=== PATIENT | male | born 1960 | race African-American/Black ===

== ENCOUNTER 2017-06-26 06:06 | Emergency (ER) | payer MEDICAID ==
[~2017-06-26] VITALS: Ht 177.8 cm; Wt 99.8 kg
[~2017-06-26 06:06] MED LIST: ASPIRIN81 MG ORAL; IBUPROFEN600 MG ORAL; LISINOPRIL20 MG ORAL; LISINOPRIL40 MG ORAL; METOPROLOL TAR100 MG ORAL; NORMODYNE200 MG ORAL; TRIAMTERENE-HC1 EAC7 ORAL
--- NOTE | 2017-06-26 06:48 | Emergency Room Report ---
History of Present Illness General Chief Complaint: Lower Extremity Injury Source: Patient Present Illness HPI Patient reports that 2 days ago he was jogging when he felt some pain to the left foot Initially at the base of the foot and localized to the base of the large toe He had rested and today after attempting to run He again felt discomfort to the base of the large toe Denies any calf pain denies any fall or trauma denies any knee pain denies any obvious swelling Pain is 5/10 localized to the outside part of the large toe and base of the toe Allergies: Coded Allergies: No Known Allergies (Unverified , 09/30/15) Patient History Past Medical History: see triage record Pertinent Family History: none Reviewed Nursing Documentation: PMH: Agreed, PSxH: Agreed Nursing Documentation-PMH Hx Hypertension: Yes Review of Systems All Other Systems: negative except mentioned in HPI Physical Exam Vital Signs Date Time Temp Pulse Resp B/P (MAP) Pulse Ox O2 Delivery O2 Flow Rate FiO2 06/26/17 06:08 98.1 82 18 124/85 98 Room Air Sp02 EP Interpretation: reviewed, normal General Appearance: well appearing, no apparent distress Head: normocephalic, atraumatic Eyes: bilateral eye PERRL, bilateral eye EOMI ENT: normal pharynx Neck: supple Musculoskeletal: other - Patient has a flattened arch of his foot, tender on palpation of the base of the large toe on the left side, no obvious swelling or erythema Neurologic: alert, oriented x3, responsive Skin: normal color, no rash Lymphatic: no adenopathy Medical Decision Making Diagnostic Impression: Primary Impression: Foot sprain ER Course Given the patient's history and presentation multiple differentials were considered Including gout, sprain, fracture Patient's imaging study does not reveal any obvious acute pathology Patient does have a flat arch possibly contributing to this problem Patient was provided gout diet In a stable for close followup Other X-Ray Diagnostic Results Other X-Ray Diagnostic Results : X-Ray ordered: left foot # of Views/Limited Vs Complete: 3 View Indication: Pain EP Interpretation: Yes Interpretation: no dislocation, no soft tissue swelling, no fractures Impression: No acute disease Electronically Signed by: Nicole Mckenna DO Last Vital Signs Date Time Temp Pulse Resp B/P (MAP) Pulse Ox O2 Delivery O2 Flow Rate FiO2 06/26/17 06:08 98.1 82 18 124/85 98 Room Air Status: improved Disposition: HOME, SELF-CARE Condition: Improved Scripts Ibuprofen* (MOTRIN*) 600 Mg Tablet 600 MG ORAL Q8H Y for For Pain, #20 TAB 0 Refills Prov: NICOLE MCKENNA D.O. 06/26/17 Additional Instructions: Patient is provided with the discharge instructions notified to follow up with primary doctor in the next 2-3 days otherwise return to the er with any worsening symptoms. Please note that this report is being documented using [employer] technology. This can lead to erroneous entry secondary to incorrect interpretation by the dictating instrument. NICOLE MCKENNA D.O. Jun 26, 2017 06:48
[2017-06-26] MEDS ORDERED: IBUPROFEN600 MG ORAL (07:09)
[2017-06-26 07:16] VITALS: BP 124/85
--- NOTE | 2017-06-26 12:10 | Diagnostic Imaging Report ---
Indication: Pain Comparison: None Findings: 3 views of the left foot were obtained. No acute fractures, malalignment, erosions or periostitis are identified. There is narrowing of the first MTP joint with mild osteophyte formation. Soft tissues are unremarkable. Impression: No acute findings
== END 2017-06-26 07:16 | disposition home or self-care (01) ==
LOC: EMR 07:03
DX: S93.602A Unspecified sprain of left foot, initial encounter (principal); X58.XXXA Exposure to other specified factors, initial encounter; Y92.89 Other specified places as the place of occurrence of the external cause; I10 Essential (primary) hypertension
CPT/HCPCS: 99283

== ENCOUNTER 2017-12-07 07:51 | Emergency (ER) | payer MEDICAID ==
[~2017-12-07] VITALS: Ht 175.3 cm; Wt 99.8 kg
[2017-12-07 08:09] VITALS: BP 130/79
[2017-12-07 08:40] VITALS: BP 127/84
[2017-12-07 08:47] LABS: BASOPHILS % (AUTO) 2.5 % (0.0-2.0); EOSINOPHILS % (AUTO) 4.7 % (0.0-3.0); HEMATOCRIT 39.1 % (42.0-52.0); HEMOGLOBIN 13.2 G/DL (14.2-18.0); LYMPHOCYTES % (AUTO) 28.9 % (20.0-45.0); MEAN CORPUSCULAR VOLUME 84 FL (80-99); MONOCYTES % (AUTO) 8.8 % (1.0-10.0); NEUTROPHILS % (AUTO) 55.1 % (45.0-75.0); PLATELET COUNT 305 K/UL (150-450); RED BLOOD COUNT 4.66 M/UL (4.70-6.10); RED CELL DISTRIBUTION WIDTH 12.5 % (11.6-14.8); WHITE BLOOD COUNT 8.3 K/UL (4.8-10.8)
[2017-12-07 08:58] LABS: ANION GAP 9 mmol/L (5-15); BLOOD UREA NITROGEN 17 mg/dL (7-18); CARBON DIOXIDE 26 MMOL/L (21-32); CHLORIDE 102 MMOL/L (98-107); CREATININE 1.2 MG/DL (0.55-1.30); POTASSIUM 4.7 MMOL/L (3.5-5.1); SODIUM 137 MMOL/L (136-145)
[2017-12-07 09:13] LABS: ALANINE AMINOTRANSFERASE 57 U/L (12-78); ALBUMIN 3.8 G/DL (3.4-5.0); ALBUMIN/GLOBULIN RATIO 1.1 (1.0-2.7); ALKALINE PHOSPHATASE 61 U/L (46-116); ASPARTATE AMINO TRANSFERASE 34 U/L (15-37); BILIRUBIN,TOTAL 0.4 MG/DL (0.2-1.0); CKMB 6.4 NG/ML (0.0-3.6); CREATINE KINASE 775 U/L (26-308)
--- NOTE | 2017-12-07 09:17 | Diagnostic Imaging Report ---
Indication: Chest pain Technique: XRAY Chest 1v Comparison: 05/01/2016 Findings: The cardiomediastinal silhouette is within normal limits. There is no focal consolidation, pneumothorax or pleural effusion. Osseous structures demonstrate no acute abnormality. Impression: No acute cardiopulmonary disease.
[2017-12-07 11:26] VITALS: BP 117/74
--- NOTE | 2017-12-07 12:20 | Emergency Room Report ---
History of Present Illness General Chief Complaint: Chest Pain Source: Patient Present Illness HPI Patient presents with complaints of chest pain He reports that about one to 2 hours prior to arrival he was washing his car and when he moved his right arm in a [id number] maneuver he felt sharp pain in the mid chest area He reports of the pain has resolved since then And it lasted for a split second Denies any shortness of breath Denies any vomiting or diarrhea denies any current discomfort Patient has history of hypertension reports that he Was seen this past year by his plain clothes police officer had extensive testing done including echocardiogram and ultrasound which were normal Allergies: Coded Allergies: No Known Allergies (Unverified , 09/30/15) Patient History Past Medical History: see triage record Pertinent Family History: none Reviewed Nursing Documentation: PMH: Agreed; PSxH: Agreed Nursing Documentation-PMH Hx Hypertension: Yes Review of Systems All Other Systems: negative except mentioned in HPI Physical Exam Vital Signs Date Time Temp Pulse Resp B/P (MAP) Pulse Ox O2 Delivery O2 Flow Rate FiO2 12/07/17 07:56 98.0 81 20 130/79 96 Room Air 98.1 Sp02 EP Interpretation: reviewed, normal General Appearance: well appearing, no apparent distress Head: normocephalic, atraumatic Eyes: bilateral eye PERRL, bilateral eye EOMI ENT: hearing grossly normal, normal pharynx, TMs + canals normal, uvula midline Neck: full range of motion, supple, no meningismus, no bony tend Respiratory: lungs clear, normal breath sounds, no rhonchi, no respiratory distress, no retraction, no accessory muscle use Cardiovascular #1: normal peripheral pulses, regular rate, rhythm, no edema, no gallop, no JVD, no murmur Gastrointestinal: normal bowel sounds, non tender, soft, no mass, no organomegaly, non-distended, no guarding, no hernia, no pulsatile mass, no rebound Genitourinary: no CVA tenderness Musculoskeletal: normal inspection Neurologic: oriented x3, responsive, cooler operator III-XII nml as tested, motor strength/ tone normal, sensory intact Psychiatric: mood/affect normal Skin: normal color, no rash, warm/dry, palpation normal Lymphatic: normal inspection, no adenopathy Medical Decision Making Diagnostic Impression: Primary Impression: Chest pain ER Course Patient is a fairly complex patient with multiple differential to consideration including but not limited to cardiac cardiopulmonary and vascular emergencies Patient's EKG was normal initial troponin was negative Given the recent presentation each foreign was repeated Total CK however is mildly elevated Also the index is mildly elevated Given the patient's past medical history he was recommended for the patient to be admitted to the hospital for repeat testing and cardiology consultation Patient however reports that he has been pain-free throughout his stay and will follow closely with his primary physician understanding the risk factors of bleeding with potential cardiac event and possible Labs Test 12/07/17 08:19 12/07/17 10:40 White Blood Count 8.3 K/UL (4.8-10.8) Red Blood Count 4.66 M/UL (4.70-6.10) Hemoglobin 13.2 G/DL (14.2-18.0) Hematocrit 39.1 % (42.0-52.0) Mean Corpuscular Volume 84 FL (80-99) Mean Corpuscular Hemoglobin 28.4 PG (27.0-31.0) Mean Corpuscular Hemoglobin Concent 33.8 G/DL (32.0-36.0) Red Cell Distribution Width 12.5 % (11.6-14.8) Platelet Count 305 K/UL (150-450) Mean Platelet Volume 7.3 FL (6.5-10.1) Neutrophils (%) (Auto) 55.1 % (45.0-75.0) Lymphocytes (%) (Auto) 28.9 % (20.0-45.0) Monocytes (%) (Auto) 8.8 % (1.0-10.0) Eosinophils (%) (Auto) 4.7 % (0.0-3.0) Basophils (%) (Auto) 2.5 % (0.0-2.0) Sodium Level 137 MMOL/L (136-145) Potassium Level 4.7 MMOL/L (3.5-5.1) Chloride Level 102 MMOL/L (98-107) Carbon Dioxide Level 26 MMOL/L (21-32) Anion Gap 9 mmol/L (5-15) Blood Urea Nitrogen 17 mg/dL (7-18) Creatinine 1.2 MG/DL (0.55-1.30) Estimat Glomerular Filtration Rate > 60 mL/min (>60) Glucose Level 111 MG/DL (74-106) Calcium Level 9.0 MG/DL (8.5-10.1) Total Bilirubin 0.4 MG/DL (0.2-1.0) Aspartate Amino Transf (AST/SGOT) 34 U/L (15-37) Alanine Aminotransferase (ALT/SGPT) 57 U/L (12-78) Alkaline Phosphatase 61 U/L (46-116) Total Creatine Kinase 775 U/L (26-308) Creatine Kinase MB 6.4 NG/ML (0.0-3.6) Creatine Kinase MB Relative Index 0.8 Troponin I 0.000 ng/mL (0.000-0.056) 0.010 ng/mL (0.000-0.056) Total Protein 7.3 G/DL (6.4-8.2) Albumin 3.8 G/DL (3.4-5.0) Globulin 3.5 g/dL Albumin/Globulin Ratio 1.1 (1.0-2.7) Urine Opiates Screen Negative (NEGATIVE) Urine Barbiturates Screen Negative (NEGATIVE) Phencyclidine (PCP) Screen Negative (NEGATIVE) Urine Amphetamines Screen Negative (NEGATIVE) Urine Benzodiazepines Screen Negative (NEGATIVE) Urine Cocaine Screen Negative (NEGATIVE) Urine Marijuana (THC) Screen Negative (NEGATIVE) EKG Diagnostic Results Rate: normal Rhythm: NSR ST Segments: no acute changes Rhythm Strip Diag. Results EP Interpretation: yes Rate: 77 Rhythm: NSR, no PVC's, no ectopy Chest X-Ray Diagnostic Results Chest X-Ray Diagnostic Results : Chest X-Ray Ordered: Yes # of Views/Limited/Complete: 1 View Indication: Chest Pain Interpretation: no consolidation, no effusion, no pneumothorax Impression: No acute disease Electronically Signed by: Nicole Levy DO Last Vital Signs Date Time Temp Pulse Resp B/P (MAP) Pulse Ox O2 Delivery O2 Flow Rate FiO2 12/07/17 11:26 98.1 20 117/74 96 Room Air 98.1 12/07/17 08:09 81 Status: improved Disposition: HOME, SELF-CARE Condition: Improved Referrals: [facility],REFERRING (PCP) Patient Instructions: Nonspecific Chest Pain Additional Instructions: Please note that it was discussed regarding recommendations for inpatient observation care and further urgent cardiac evaluation. You have reported that you've feel fine at this time and do not want to be admitted to the hospital. Understanding that the blood work and that test here can potentially miss small abnormalities with cardiac pathology. Please return to the emergency room emergently if you change your mind Nicole Levy DO Dec 07, 2017 12:20
--- NOTE | 2017-12-10 15:15 | Cardiology Report ---
APPROVED REPORT EKG Measurement Heart [id number] Normal sinus rhythm Normal ECG
== END 2017-12-07 11:31 | disposition home or self-care (01) ==
LOC: EMR 08:05 → CANBEDREQ 11:22 → EMR 11:31
DX: R07.9 Chest pain, unspecified (principal); I10 Essential (primary) hypertension
CPT/HCPCS: 36415; 71045; 80053; 80307; 82550; 82553; 84484; 85025; 93005; 99283

== ENCOUNTER 2019-07-04 00:35 | Emergency (ER) | payer MEDICAID ==
[~2019-07-04] VITALS: Ht 177.8 cm; Wt 102.1 kg
[2019-07-04] MEDS ORDERED: TIAZAC360 MG ORAL (00:52)
[2019-07-04] MEDS ORDERED: METOPROLOL SUC100 MG ORAL (00:53)
--- NOTE | 2019-07-04 00:59 | Emergency Room Report ---
History of Present Illness General Chief Complaint: Edema Source: Patient Present Illness HPI Patient is a 59-year-old male presents after increased left-sided foot discomfort. He reports of increased swelling to the foot with gradual onset. He noticed onset of symptoms after increased dietary indiscretions. He reports having recently eaten multiple foods which may have triggered some arthritic changes in his leg. Reports of increased pain with ambulation. He denies any recent trauma. He reports having a similar episode in the past. Denies any fever. He had prior history of hypertension but does not take any diuretics. Allergies: Coded Allergies: No Known Allergies (Unverified , 09/30/15) Nursing Documentation-[facility] [place] Hx Hypertension: Yes Physical Exam Vital Signs Date Time Temp Pulse Resp B/P (MAP) Pulse Ox O2 Delivery O2 Flow Rate FiO2 07/04/19 00:41 98.8 68 16 117/74 (88) 96 Room Air General Appearance: well appearing, no apparent distress, alert, GCS 15, obese Head: normocephalic, atraumatic ENT: hearing grossly normal, normal voice Neck: full range of motion, supple Respiratory: chest non-tender, lungs clear, no respiratory distress, speaking full sentences Cardiovascular #1: normal inspection, edema - left foot swelling, no erythema Gastrointestinal: normal inspection Musculoskeletal: decreased range of mation, swelling, tenderness Neurologic: alert, oriented x3, abnormal gait - antalgic gait Psychiatric: mood/affect normal Skin: no rash Medical Decision Making Diagnostic Impression: Primary Impression: Gouty arthritis of left foot ER Course Patient presented for foot pain. Differential diagnosis include was not limited to arthritis, gout, pedal edema, cellulitis among others. Patient's foot has brisk pulses. There is no evidence of vascular compromise. There is some swelling primarily to the MTP joint of the left great toe as well as some edema to the foot. Patient was given anti-inflammatory medications. Laboratory testing was ordered.The patient was noted to have elevated uric acid level. Patient was given first dose of colchicine.Patient was advised to follow -up with primary care physician for recheck if not improved. Patient was advised to consult his primary care physician for possible withdrawal of diuretic as this may be exacerbating his gout. He was advised dietary modifications.Patient was given a prescription for colchicine. He was advised to return if worse. Labs Test 07/04/19 01:00 White Blood Count 10.1 K/UL (4.8-10.8) Red Blood Count 4.52 M/UL (4.70-6.10) Hemoglobin 12.7 G/DL (14.2-18.0) Hematocrit 37.0 % (42.0-52.0) Mean Corpuscular Volume 82 FL (80-99) Mean Corpuscular Hemoglobin 28.2 PG (27.0-31.0) Mean Corpuscular Hemoglobin Concent 34.4 G/DL (32.0-36.0) Red Cell Distribution Width 12.0 % (11.6-14.8) Platelet Count 301 K/UL (150-450) Mean Platelet Volume 6.3 FL (6.5-10.1) Neutrophils (%) (Auto) 58.2 % (45.0-75.0) Lymphocytes (%) (Auto) 27.5 % (20.0-45.0) Monocytes (%) (Auto) 8.5 % (1.0-10.0) Eosinophils (%) (Auto) 3.7 % (0.0-3.0) Basophils (%) (Auto) 2.1 % (0.0-2.0) Sodium Level 141 MMOL/L (136-145) Potassium Level 4.6 MMOL/L (3.5-5.1) Chloride Level 105 MMOL/L (98-107) Carbon Dioxide Level 25 MMOL/L (21-32) Anion Gap 11 mmol/L (5-15) Blood Urea Nitrogen 24 mg/dL (7-18) Creatinine 1.3 MG/DL (0.55-1.30) Estimat Glomerular Filtration Rate > 60 mL/min (>60) Glucose Level 109 MG/DL (74-106) Uric Acid 8.9 MG/DL (2.6-7.2) Calcium Level 8.6 MG/DL (8.5-10.1) Total Bilirubin 0.3 MG/DL (0.2-1.0) Aspartate Amino Transf (AST/SGOT) 30 U/L (15-37) Alanine Aminotransferase (ALT/SGPT) 37 U/L (12-78) Alkaline Phosphatase 64 U/L (46-116) Total Protein 6.9 G/DL (6.4-8.2) Albumin 3.6 G/DL (3.4-5.0) Globulin 3.3 g/dL Albumin/Globulin Ratio 1.1 (1.0-2.7) Last Vital Signs Date Time Temp Pulse Resp B/P (MAP) Pulse Ox O2 Delivery O2 Flow Rate FiO2 07/04/19 00:41 98.8 68 16 117/74 (88) 96 Room Air Status: improved Disposition: HOME, SELF-CARE Condition: Stable Scripts Colchicine (Colchicine) 0.6 Mg Capsule 0.6 MG PO BID, #30 CAP Prov: Michael Ho MD 07/04/19 Referrals: [facility],REFERRING (PCP) Michael Ho MD Jul 04, 2019 00:59
[2019-07-04] MEDS ORDERED: Ketorolac 30mg Inj IV ONE (01:00)
--- NOTE | 2019-07-04 01:03 | NUR ---
ED Nurse Note: Pt ambulated to ED from home c/o pain and swelling in L foot, +3 edema noted. Pt denies hx of gout, states he usually is on a strict diet but over the past week has not adhered to diet. Pt A&Ox4, VSS. Denies trauma or injury to foot
[2019-07-04 01:05] VITALS: BP 117/74
[2019-07-04 01:41] LABS: BASOPHILS % (AUTO) 2.1 % (0.0-2.0); EOSINOPHILS % (AUTO) 3.7 % (0.0-3.0); HEMOGLOBIN 12.7 G/DL (14.2-18.0); LYMPHOCYTES % (AUTO) 27.5 % (20.0-45.0); MEAN CORPUSCULAR VOLUME 82 FL (80-99); MONOCYTES % (AUTO) 8.5 % (1.0-10.0); NEUTROPHILS % (AUTO) 58.2 % (45.0-75.0); PLATELET COUNT 301 K/UL (150-450); RED BLOOD COUNT 4.52 M/UL (4.70-6.10); WHITE BLOOD COUNT 10.1 K/UL (4.8-10.8)
[2019-07-04 01:46] LABS: ANION GAP 11 mmol/L (5-15); BLOOD UREA NITROGEN 24 mg/dL (7-18); CALCIUM 8.6 MG/DL (8.5-10.1); CARBON DIOXIDE 25 MMOL/L (21-32); CHLORIDE 105 MMOL/L (98-107); CREATININE 1.3 MG/DL (0.55-1.30); POTASSIUM 4.6 MMOL/L (3.5-5.1); SODIUM 141 MMOL/L (136-145)
[2019-07-04 01:48] LABS: ALANINE AMINOTRANSFERASE 37 U/L (12-78); ALBUMIN 3.6 G/DL (3.4-5.0); ALBUMIN/GLOBULIN RATIO 1.1 (1.0-2.7); ALKALINE PHOSPHATASE 64 U/L (46-116); ASPARTATE AMINO TRANSFERASE 30 U/L (15-37); BILIRUBIN,TOTAL 0.3 MG/DL (0.2-1.0)
--- NOTE | 2019-07-04 01:59 | Diagnostic Imaging Report ---
EXAM: XR Chest, 1 View CLINICAL HISTORY: SOB TECHNIQUE: Frontal view of the chest. COMPARISON: Prior 12 07 17 study not available. Comparison is made to 05 01 16 FINDINGS: Lungs: Unremarkable. No consolidation. Pleural space: Unremarkable. No pneumothorax. Heart: Unremarkable. No cardiomegaly. Mediastinum: Unremarkable. Bones joints: Unremarkable. IMPRESSION: Unremarkable chest x-ray.
[2019-07-04] MEDS ORDERED: COLCHICINE0.6 M1 PO (02:00)
[2019-07-04 02:05] VITALS: BP 122/78
--- NOTE | 2019-07-04 02:05 | NUR ---
ER DISCHARGE NOTE: Patient is cleared to be discharged per ERMD, pt is aox4, on room air, with stable vital signs. pt was given dc and prescription instructions, pt was able to verbalize understanding, pt id band and iv site removed without complications. pt is able to ambulate with steady gait. pt took all belongings.
== END 2019-07-04 02:05 | disposition home or self-care (01) ==
LOC: EMR 00:53
DX: M10.9 Gout, unspecified (principal); E66.9 Obesity, unspecified; I10 Essential (primary) hypertension; Z68.32 Body mass index [BMI] 32.0-32.9, adult
CPT/HCPCS: 36415; 71045; 80053; 84550; 85025; 96374; J1885; Z7502; 99284

== ENCOUNTER 2020-03-12 02:39 | Emergency (ER) | payer MEDICAID ==
[~2020-03-12] VITALS: Ht 177.8 cm; Wt 99.8 kg
[~2020-03-12 02:39] MED LIST changes: +COLCHICINE0.6 M1 PO; +METOPROLOL SUC100 MG ORAL; +TIAZAC360 MG ORAL
--- NOTE | 2020-03-12 02:55 | NUR ---
ED Nurse Note: Recieved pt from home, here with c/o left knee pain x 2 weeks, posibly strained, denies fall or injury, pt ambulating with mild limp, pain at 5/10, denies any other discomforts or complaints.
[2020-03-12] MEDS ORDERED: IBUPROFEN600 M1 ORAL (03:10)
--- NOTE | 2020-03-12 03:10 | Emergency Room Report ---
History of Present Illness General Chief Complaint: Lower Extremity Injury Source: Patient Present Illness HPI This is a 59-year-old male with history hypertension. He presents with chief complaint of left knee pain. Injury occurred about 3 weeks ago. He was on a ladder and as he was coming down, he twisted his knee. Pain mostly medially. He has a hard time bending and flexing it fully. Worse with walking up the steps. No direct trauma. No fever chills but no nausea no vomiting. Pain is 7 out of 10. Allergies: Coded Allergies: No Known Allergies (Unverified , 09/30/15) COVID-19 Screening Contact w/high risk pt: No Experienced COVID-19 symptoms?: No COVID-19 Testing performed SERVICE STATION MANAGER: No Patient History Past Medical History: see triage record, HTN Past Surgical History: none Pertinent Family History: none Social History: Denies: smoking Immunizations: other Reviewed Nursing Documentation: PMH: Agreed; PSxH: Agreed Nursing Documentation-PMH Hx Hypertension: Yes Review of Systems Eye: Denies: eye pain, blurred vision ENT: Denies: ear pain, nose congestion, throat swelling Respiratory: Denies: cough, shortness of breath Cardiovascular: Denies: chest pain, palpitations Gastrointestinal: Denies: abdominal pain, diarrhea, nausea, vomiting Musculoskeletal: Reports: joint pain; Denies: back pain Skin: Denies: rash Neurological: Denies: headache, numbness Endocrine: Denies: increased thirst, increased urine Hematologic/Lymphatic: Denies: easy bruising All Other Systems: negative except mentioned in HPI Physical Exam Vital Signs Date Time Temp Pulse Resp B/P (MAP) Pulse Ox O2 Delivery O2 Flow Rate FiO2 03/12/20 02:45 98.4 74 16 115/76 (89) 98 Room Air Vitals normal Sp02 EP Interpretation: reviewed, normal General Appearance: well appearing, no apparent distress, alert Head: normocephalic, atraumatic Eyes: bilateral eye PERRL, bilateral eye EOMI ENT: hearing grossly normal, normal pharynx Neck: full range of motion, supple, no meningismus Respiratory: chest non-tender, lungs clear, normal breath sounds Cardiovascular #1: regular rate, rhythm, no murmur Gastrointestinal: normal bowel sounds, non tender, no mass, no organomegaly, no bruit, non-distended Musculoskeletal: back normal, normal range of motion, gait/station normal, other - Left knee: Tenderness to the medial collateral ligament. Mild effusion. Knee is stable. Psychiatric: mood/affect normal Medical Decision Making Diagnostic Impression: Primary Impression: Sprain of unspecified site of left knee, initial encounter ER Course Patient with left knee sprain. No fracture dislocation. Will discharge home. He may benefit from MRI. Other X-Ray Diagnostic Results Other X-Ray Diagnostic Results : X-Ray ordered: Left knee x-rays # of Views/Limited Vs Complete: 4 View Indication: Pain EP Interpretation: Yes Interpretation: no dislocation, no soft tissue swelling, no fractures, other - bone island/cyst Impression: Other - bone cyst/sclerotic change prox fib Electronically Signed by: Jordy Wright MD Last Vital Signs Date Time Temp Pulse Resp B/P (MAP) Pulse Ox O2 Delivery O2 Flow Rate FiO2 03/12/20 02:45 98.4 74 16 115/76 (89) 98 Room Air Status: improved Disposition: HOME, SELF-CARE Condition: Stable Scripts Ibuprofen* (MOTRIN*) 600 Mg Tablet 600 MG ORAL Q6H PRN for For Pain, #30 TAB 0 Refills Prov: Jordy Wright MD 03/12/20 Referrals: NON PHYSICIAN (PCP) Patient Instructions: Knee Sprain Additional Instructions: Follow-up with your doctor in 7 days. You may need an MRI to check for ligament or meniscus injury. Return if symptoms worsen. Jordy Wright MD Mar 12, 2020 03:10
[2020-03-12 03:20] VITALS: BP 115/76
--- NOTE | 2020-03-12 03:20 | NUR ---
ER DISCHARGE NOTE: Patient is cleared to be discharged per ERMD, pt is aox4, on room air, with stable vital signs. pt was given dc and prescription instructions, pt was able to verbalize understanding, pt id band and iv site removed without complications. pt is able to ambulate with steady gait. pt took all belongings. pt given crutches with crutch training and verbalizes safety measures with return demonstration done.
--- NOTE | 2020-03-12 03:36 | Diagnostic Imaging Report ---
EXAM: XR Left Knee, 3 Views CLINICAL HISTORY: TRAUMA TECHNIQUE: Three views of the left knee. COMPARISON: No relevant prior studies available. 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 No fracture, radiographic soft tissue mass or malalignment is apparent. There is some remodeling of the proximal tibial metaphysis, likely from mass effect from the fibula osteochondroma. Soft tissues: Unremarkable. 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 Recommend nonemergent MRI in further characterization if not already performed.
== END 2020-03-12 03:20 | disposition home or self-care (01) ==
LOC: EMR 03:01
DX: S83.92XA Sprain of unspecified site of left knee, initial encounter (principal); I10 Essential (primary) hypertension; X50.1XXA Overexertion from prolonged static or awkward postures, initial encounter; Y92.9 Unspecified place or not applicable; D16.22 Benign neoplasm of long bones of left lower limb
CPT/HCPCS: 99283